=== PATIENT | female | born 1950 | race African-American/Black ===

== ENCOUNTER 2019-10-01 10:33 | Emergency (ER) | payer OTHER, SELFPAY ==
[~2019-10-01] VITALS: Ht 167.6 cm; Wt 86.6 kg
[2019-10-01 11:05] VITALS: Ht 167.6 cm; Wt 86.6 kg
[2019-10-01 12:50] LABS: BASOPHIL % 0.3 % (0-2)
[2019-10-01 12:59] LABS: PLATELET COUNT 477 x10^3mcL (130-400)
[2019-10-01 13:11] LABS: CALCIUM 9.6 mg/dL (8.5-10.1); CARBON DIOXIDE 26.4 mmol/L (21-32); CREATININE SERUM 1.5 mg/dL (0.6-1.0); POTASSIUM SERUM 4.6 mmol/L (3.5-5.1)
[2019-10-01 13:15] LABS: ALBUMIN 3.7 g/dL (3.4-5.0); BILIRUBIN TOTAL 0.79 mg/dL (0.20-1.00)
[2019-10-01 13:16] LABS: TOTAL PROTEIN, SERUM 8.7 g/dL (6.4-8.2)
[2019-10-01 14:41] VITALS: BP 136/79
[2019-10-01 14:45] LABS: UA SPECIFIC GRAVITY 1.015 (1.005-1.035); microscopic required? YES; urine erythrocyte NEGATIVE (NEGATIVE)
== END 2019-10-01 14:41 | disposition home or self-care (01) ==
LOC: ED 10:33 → EDBD 10:33 → ED 14:41
PROVIDERS: Emergency Medicine
DX: E86.0 Dehydration (principal); R19.7 Diarrhea, unspecified; J45.909 Unspecified asthma, uncomplicated; Z20.828 Contact with and (suspected) exposure to other viral communicable diseases; Z98.890 Other specified postprocedural states
CPT/HCPCS: J7030; Q0092; U0003-CS